=== PATIENT | female | born 2005 | race Hispanic/Latino ===

== ENCOUNTER 2024-12-03 14:28 | Emergency (ER) | payer SELFPAY ==
[~2024-12-03] VITALS: Ht 154.9 cm; Wt 65.8 kg
[2024-12-03 14:29] VITALS: TEMP 98.3
[2024-12-03 14:59] LABS: IMMATURE GRANULOCYTE ABSOLUTE 0.04 K/uL (0-1); NUCLEATED RED BLOOD CELLS 0.0 % (0.0-0.19); PLATELET COUNT (AUTO) 254 K/uL (130-400); RED BLOOD CELL COUNT(AUTO) 4.76 MIL/uL (4.00-5.50); RED CELL DISTRIBUTION WIDTH 16.1 % (11.0-15.5); WHITE BLOOD COUNT (AUTO) 7.7 K/uL (4.8-10.8)
[2024-12-03 15:11] LABS: CREATININE 0.7 mg/dL (0.5-1.0); GLOMERULAR FILTR. RATE CALC 126.0 mL/min (>90); GLUCOSE,RANDOM 95.0 mg/dL (70-105); SODIUM SERUM 136.0 mmol/L (136-145); UREA NITROGEN, BLOOD 7.0 mg/dL (7-18)
[2024-12-03 15:12] LABS: APPEARANCE,URINE CLOUDY (CLEAR); GLUCOSE, URINE (UA) NEGATIVE (NEGATIVE); LEUKOCYTE ESTERASE ,URINE 500 Leu/uL (NEGATIVE); NITRATE,URINE NEGATIVE (NEGATIVE); OCCULT BLOOD,URINE +- (TRACE) (NEGATIVE)
[2024-12-03 15:14] LABS: ADD UA MICROSCOPIC YES
[2024-12-03 15:16] LABS: ASPARTATE AMINOTRANSFERASE 31.0 U/L (10-37); CREATINE KINASE, TOTAL 119.0 U/L (21-232); TOTAL PROTEIN, SERUM 7.4 g/dL (6.0-8.3)
[2024-12-03 15:18] LABS: AMPHET/METH SCREEN,URINE NEGATIVE (NEGATIVE); BARBITURATE SCREEN, URINE NEGATIVE (NEGATIVE); CANNABINOID SCREEN,URINE NEGATIVE (NEGATIVE); COCAINE SCREEN,URINE NEGATIVE (NEGATIVE)
[2024-12-03 15:22] LABS: SQUAMOUS EPITHELIAL CELL,UR MANY /HPF (0-2)
--- NOTE | 2024-12-03 15:26 | ERN ---
ED Note History of Present Illness Stated Complaint: SEIZURE Chief Complaint: Seizure Time Seen by MD: 14:30 Time Seen by Midlevel: 14:31 Dictation: 19-year-old female presents to the emergency department due to report of having had a seizure type of activity 1 hour prior to arrival. Patient states that she was sitting down when last thing that she recalled was waking up with her boss Her. She states that her boss told her that she was having a shaky type of event. . 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 Home Meds Active Scripts Cephalexin Monohydrate (Keflex) 500 Mg Cap, 500 MG PO BID for 5 Days, #10 CAP Prov:ROMA BEATTY 12/03/24 Past Medical History Past Medical History: No Pertinent History Surgical History: None RN Note Reviewed/Agreed w/PFSH: Yes Review of System Dictation Constitutional: Negative for fever,chills, and weight loss Eyes: Negative for injury, pain,redness, and discharge ENT: Negative for injury,pain or swelling Cardiovascular: Negative for chest pain, palpitations, and edema Respiratory: Negative for shortness of breath, cough, and wheezing, Abdomen/GI: Negative for abdominal pain, nausea, vomiting, diarrhea, and constipation Back: Negative for injury and pain : Negative for injury, bleeding and discharge MS/Extremity: Negative for injury and deformity Skin: Negative for rash, and discoloration Neuro: Negative for headache, weakness, numbness, tingling, and seizure Psych: Negative for suicide ideation, homicidal ideation, and hallucinations Initial Vital Sign VS Vital Signs Date Time Temp Pulse Resp B/P (MAP) Pulse Ox O2 Delivery O2 Flow Rate FiO2 12/03/24 14:29 98.2 93 18 112/66 98 Room Air 12/03/24 14:45 0 21 Physical Exam Dictation General: awake, alert, NAD Head/Face: Normocephalic, atraumatic Eyes: PERRL, EOMI ENT: Oral mucosa moist Neck: Trachea midline, supple Cardiovascular: RRR, no edema Respiratory: Symmetrical, non-labored Abdomen: Soft, non-tender, non-distended, no guarding. Skin: Warm, dry, good turgor, no rash MS/Extremity: Pulses equal, no cyanosis, neurovascular intact, FROM Neuro: COAx4, GCS 15, steady gait, Psych: Normal behavior, mood, and affect normal Results (Laboratory/Radiology) Laboratory/Radiology Laboratory Tests Test 12/03/24 14:49 12/03/24 15:03 White Blood Count 7.7 K/uL (4.8-10.8) Red Blood Count 4.76 MIL/uL (4.00-5.50) Hemoglobin 12.1 g/dL (12.0-16.0) Hematocrit 38.4 % (36-48) Mean Corpuscular Volume 80.7 fL (80-100) Mean Corpuscular Hemoglobin 25.4 pg (27.0-33.0) L Mean Corpuscular Hemoglobin Concent 31.5 g/dL (32.0-36.0) L Red Cell Distribution Width 16.1 % (11.0-15.5) H Platelet Count 254 K/uL (130-400) Mean Platelet Volume 10.5 fL (7.5-10.5) Immature Granulocyte % (Auto) 0.5 % (0-1) Neutrophils (%) (Auto) 56.8 % (40.0-77.0) Lymphocytes (%) (Auto) 31.7 % (21.0-51.0) Monocytes (%) (Auto) 6.5 % (3.0-13.0) Eosinophils (%) (Auto) 4.0 % (0.0-8.0) Basophils (%) (Auto) 0.5 % (0.0-5.0) Neutrophils # (Auto) 4.4 K/uL (1.8-7.7) Lymphocytes # (Auto) 2.4 K/uL (1.0-4.8) Monocytes # (Auto) 0.5 K/uL (0.1-1.0) Eosinophils # (Auto) 0.31 K/uL (0.00-0.70) Basophils # (Auto) 0.04 K/uL (0.00-0.20) Absolute Immature Granulocyte (auto 0.04 K/uL (0-1) Nucleated Red Blood Cells 0.0 % (0.0-0.19) Sodium Level 136 mmol/L (136-145) Potassium Level 4.4 mmol/L (3.5-5.1) Chloride Level 103 mmol/L (101-111) Carbon Dioxide Level 28 mmol/L (21-32) Blood Urea Nitrogen 7 mg/dL (7-18) Creatinine 0.7 mg/dL (0.5-1.0) Glomerular Filtration Rate Calc 126 mL/min (>90) Random Glucose 95 mg/dL (70-105) Total Calcium 8.5 mg/dL (8.5-10.1) Total Bilirubin 0.4 mg/dL (0.2-1.0) Aspartate Amino Transf (AST/SGOT) 31 U/L (10-37) Alanine Aminotransferase (ALT/SGPT) 42 U/L (12-78) Alkaline Phosphatase 80 U/L (50-136) Total Creatine Kinase 119 U/L (21-232) Total Protein 7.4 g/dL (6.0-8.3) Albumin 3.6 g/dL (3.5-5.0) Urine Color LIGHT-YELLOW (YELLOW) Urine Appearance CLOUDY (CLEAR) H Urine pH 5.0 (5.0-8.0) Urine Specific [place] 1.016 (1.001-1.031) Urine Protein NEGATIVE mg/dL (NEGATIVE) Urine Glucose (UA) NEGATIVE mg/dL (NEGATIVE) Urine Ketones NEGATIVE mg/dL (NEGATIVE) Urine Occult Blood +- (TRACE) (NEGATIVE) H Urine Nitrate NEGATIVE (NEGATIVE) Urine Bilirubin NEGATIVE mg/dL (NEGATIVE) Urine Urobilinogen 0.2 mg/dL (0.2-1.0) Urine Leukocyte Esterase 500 Mike/uL (NEGATIVE) H Urine RBC 11-25 /HPF (0-1) H Urine WBC 11-25 /HPF (0-1) H Urine Squamous Epithelial Cells MANY /HPF (0-2) Urine Transitional Epithelial Cells RARE /HPF (None Seen) Urine Bacteria None /HPF (None Seen) Urine Opiates Screen NEGATIVE (NEGATIVE) Urine Barbiturates Screen NEGATIVE (NEGATIVE) Urine Phencyclidine Screen NEGATIVE (NEGATIVE) Urine Amphetamines Screen NEGATIVE (NEGATIVE) Urine Benzodiazepines Screen NEGATIVE (NEGATIVE) Urine Cocaine Screen NEGATIVE (NEGATIVE) Urine Marijuana (THC) Screen NEGATIVE (NEGATIVE) Labs Reviewed?: Yes ED Course ED Course Orders Procedure Category Date Status Time Cbc With Differential LAB 12/03/24 Complete 14:41 Comprehensive LAB 12/03/24 Complete Metabolic Panel 14:41 Urinalysis Profile LAB 12/03/24 Complete 14:41 Drug Screen Urine LAB 12/03/24 Complete 14:41 Creatine Kinase, Total LAB 12/03/24 Complete 14:41 Culture Urine VERÓNICA 12/03/24 In Process 15:15 Vital Signs Date Time Temp Pulse Resp B/P (MAP) Pulse Ox O2 Delivery O2 Flow Rate FiO2 12/03/24 15:44 87 20 112/87 98 Room Air* 0 21 12/03/24 14:45 84 20 119/59 98 Room Air* 0 21 12/03/24 14:29 98.2 93 18 112/66 98 Room Air Medical Decision Making MDM MDM: Differential diagnosis: Acute UTI, vasovagal response, seizures. Rationale: Tests considered and ordered secondary to shared decision making include: Previous outside records reviewed: Old ER visits. Risk of complication and/or morbidity or mortality of patient management: None Medications-Per medication reconciliation Need for hospitalization: Patient does not meet criteria for hospitalization. Need for emergency major/minor surgery: No There are no social concerns with this patient. Prescription drug management Prescriptions will include symptomatic care Patient's prior external medical records from other ER visits were reviewed by me as indicated. Prior testing and results from previous visits were reviewed. Prior tests were taken into account with medical decision making and resource utilization, independent historian/historians were used to obtain complete medical history. I independently interpreted the test that were performed, results were reviewed by me and considered findings on radiology if ordered. Medical management and examination interpretation discussions were had by me with other qualified healthcare professionals as indicated for the patient's care. DX & DISP Disposition: Discharge Departure Impression: Primary Impression: Acute UTI Condition: Stable Scripts Cephalexin Monohydrate (Keflex) 500 Mg Cap 500 MG PO BID for 5 Days, #10 CAP Prov: ROMA BEATTY 12/03/24 Time of Disposition: 15:39 ROMA BEATTY Dec 03, 2024 15:26 JIM VALDEZ DO Dec 03, 2024 16:33
[2024-12-03] MEDS ORDERED: CEPH500B PO (15:39)
[2024-12-03 15:44] VITALS: BP 112/87; PULSE 87; RESP 20; O2SAT 98
== END 2024-12-03 15:45 | disposition home or self-care (01) ==
LOC: EDH 14:28
DX: N39.0 Urinary tract infection, site not specified (principal); R25.1 Tremor, unspecified
CPT/HCPCS: 36415; 80053; 80305; 81001; 82550; 85025; 87086; 99283

== ENCOUNTER 2024-12-03 17:06 | Emergency (ER) | payer SELFPAY ==
[~2024-12-03] VITALS: Ht 154.9 cm; Wt 65.8 kg
[~2024-12-03 17:06] MED LIST: CEPH500B PO
--- NOTE | 2024-12-03 17:20 | NUR ---
PENDING TEST RESULTS FOR CT EXAM. CHARGE NURSE NOTIFIED.
--- NOTE | 2024-12-03 17:21 | NUR ---
seizure pads added to stretcher
[2024-12-03 17:41] VITALS: BP 111/66; PULSE 96; RESP 20; TEMP 97.8; O2SAT 97
--- NOTE | 2024-12-03 18:47 | HMCIMG ---
EXAM: CT Head Without IV contrast. CLINICAL HISTORY: seizure TECHNIQUE: Axial computed tomography images of the head/brain without intravenous contrast. COMPARISON: None provided. FINDINGS: BRAIN: No evidence of acute hemorrhage. No mass lesion. No CT evidence for acute territorial infarct. No midline shift or extra-axial collections. VENTRICLES: No hydrocephalus. ORBITS: The orbits are unremarkable. SINUSES AND MASTOIDS: The paranasal sinuses and mastoid air cells are clear. BONES: No fracture. SOFT TISSUES: Unremarkable. IMPRESSION: No acute intracranial abnormality. /[place]
--- NOTE | 2024-12-03 19:06 | ERN ---
ED Note History of Present Illness Stated Complaint: RECURING SEIZURE Chief Complaint: Seizure Time Seen by MD: 17:10 Time Seen by Midlevel: 17:11 Dictation: 19-year-old female presents to the emergency department due to reported having had another seizure is trying to arrival. The patient was here earlier in the same facility for the same complaint. She states that she was in the pharmacy gave her medication when this 2nd seizure occurred. The patient denies having sustained any injury associated with this. This incident was witnessed by his the family member who is present of the time. The description of it is described as a generalized tonic type of activity. Currently, she denies having any headache, nausea, vomiting or changes in vision. Upon initial evaluation, the patient presents with a normal neurologic examination. 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 Home Meds Active Scripts Cephalexin Monohydrate (Keflex) 500 Mg Cap, 500 MG PO BID for 5 Days, #10 CAP Prov:ROMA BEATTY 12/03/24 Past Medical History Past Medical History: No Pertinent History Surgical History: None PSYCH History: no pertinent psych hx RN Note Reviewed/Agreed w/PFSH: Yes Review of System Dictation Constitutional: Negative for fever,chills, and weight loss Eyes: Negative for injury, pain,redness, and discharge ENT: Negative for injury,pain or swelling Cardiovascular: Negative for chest pain, palpitations, and edema Respiratory: Negative for shortness of breath, cough, and wheezing, Abdomen/GI: Negative for abdominal pain, nausea, vomiting, diarrhea, and constipation Back: Negative for injury and pain : Negative for injury, bleeding and discharge MS/Extremity: Negative for injury and deformity Skin: Negative for rash, and discoloration Neuro: Negative for headache, weakness, numbness, tingling, and seizure Psych: Negative for suicide ideation, homicidal ideation, and hallucinations Initial Vital Sign VS Vital Signs Date Time Temp Pulse Resp B/P (MAP) Pulse Ox O2 Delivery O2 Flow Rate FiO2 12/03/24 17:07 98.2 107 16 106/63 97 Room Air 12/03/24 17:41 0 21 Physical Exam Dictation General: awake, alert, NAD Head/Face: Normocephalic, atraumatic Eyes: PERRL, EOMI ENT: Oral mucosa moist Neck: Trachea midline, supple Cardiovascular: RRR, no edema Respiratory: Symmetrical, non-labored Abdomen: Soft, non-tender, non-distended, no guarding. Skin: Warm, dry, good turgor, no rash MS/Extremity: Pulses equal, no cyanosis, neurovascular intact, FROM Neuro: COAx4, GCS 15, steady gait, Psych: Normal behavior, mood, and affect normal Results (Laboratory/Radiology) Laboratory/Radiology Laboratory Tests Test 12/03/24 17:35 Serum Test, Qualitative NEGATIVE (NEGATIVE) CT Scan Comment: CT of the head without contrast with no anomalies as interpreted me. ED Course ED Course Orders Procedure Category Date Status Time Ct Head/Brain W/O CT 12/03/24 Resulted Contrast 17:11 Testing, LAB 12/03/24 Complete Serum Hcg 17:30 Acetaminophen 500mg PHA 12/03/24 Complete Tab (Tylenol 500mg T 18:30 Current Medications Medications (Trade) Dose Ordered Sig/Zeina Route PRN Reason Start Time Stop Time Status Last Admin Dose Admin Acetaminophen (TYLenol 500MG TAB) 1,000 mg ONCE ONCE PO 12/03/24 18:30 12/03/24 18:31 DC 12/03/24 18:36 Vital Signs Date Time Temp Pulse Resp B/P (MAP) Pulse Ox O2 Delivery O2 Flow Rate FiO2 12/03/24 17:41 97.9 96 20 111/66 97 Room Air* 0 21 12/03/24 17:07 98.2 107 16 106/63 97 Room Air Medical Decision Making MDM MDM: Differential diagnosis: New onset seizures, electrolyte imbalance, vasovagal response. Rationale: Tests considered and ordered secondary to shared decision making include: Previous outside records reviewed: Old ER visits. Risk of complication and/or morbidity or mortality of patient management: None Medications-Per medication reconciliation Need for hospitalization: Patient does not meet criteria for hospitalization. Need for emergency major/minor surgery: No There are no social concerns with this patient. Prescription drug management Prescriptions will include symptomatic care Patient's prior external medical records from other ER visits were reviewed by me as indicated. Prior testing and results from previous visits were reviewed. Prior tests were taken into account with medical decision making and resource utilization, independent historian/historians were used to obtain complete medical history. I independently interpreted the test that were performed, results were reviewed by me and considered findings on radiology if ordered. Medical management and examination interpretation discussions were had by me with other qualified healthcare professionals as indicated for the patient's c are. DX & DISP Disposition: Discharge Departure Impression: Primary Impression: New onset seizure Condition: Stable Referrals: SELF,REFERRAL (PCP) Time of Disposition: 19:06 ROMA BEATTY Dec 03, 2024 19:06 JIM VALDEZ DO Dec 04, 2024 06:59
== END 2024-12-03 19:29 | disposition home or self-care (01) ==
LOC: EDH 17:06
DX: R56.9 Unspecified convulsions (principal)
CPT/HCPCS: 36415; 70450; 84703; 99284